=== PATIENT | male | born 2000 | race Hispanic/Latino ===

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

== ENCOUNTER 2021-07-19 22:50 | Emergency (ER) | payer OTHER | END 2021-07-19 23:43 | disposition left against medical advice (07) | LOC: ERS 22:50 → MERGE 22:50 → ERS 23:43 | DX: Z53.21 Procedure and treatment not carried out due to patient leaving prior to being seen by health care provider (principal) ==

== ENCOUNTER 2021-07-20 00:22 | Emergency (ER) | payer OTHER | END 2021-07-20 02:47 | disposition home or self-care (01) | LOC: ERS 00:22 → MERGE 00:22 → ERS 02:47 | DX: R04.0 Epistaxis (principal) | CPT/HCPCS: 99283 ==

== ENCOUNTER 2022-03-02 03:35 | Emergency (ER) | payer OTHER ==
[2022-03-02] MEDS ORDERED: Ketorolac Tromethamine 30 MG/ML VIAL ONE (04:11)
== END 2022-03-02 04:48 | disposition home or self-care (01) ==
LOC: ERS 03:35
DX: S93.401A Sprain of unspecified ligament of right ankle, initial encounter (principal); W50.2XXA Accidental twist by another person, initial encounter; Y93.67 Activity, basketball
CPT/HCPCS: 96372; J1885